=== PATIENT | female | born 1955 | race Caucasian/White ===

== ENCOUNTER 2019-09-11 10:39 | Emergency (ER) | payer BC ==
[2019-09-11 11:10] VITALS: BP 141/91
--- NOTE | 2019-09-11 11:21 | UC ---
Minor Trauma HPI - HPI Summary HPI Summary: 63-year-old female who was hit on the right side of her chest 2 days ago from a barn door that swung open as a result of a very windy day. She states although it hurt at the time she didn't start feeling short of breath or increased pain until yesterday when she was at work. - History of Current Complaint Chief Complaint: UCGeneralIllness Stated Complaint: HIT W/ BARN DOOR RIGHT CHEST/RIBS/BACK PAIN SOB Time Seen by Provider: 09/11/19 10:45 Hx Obtained From: Patient ?: No Onset/Duration: Sudden Onset Onset Of Pain: Immediate Severity Initially: Mild Severity Currently: Moderate Pain Intensity: 8 Mechanism Of Injury: Blunt Trauma - I heavy barn door swung out as a result of a window and hit her in the right lateral upper chest. Aggravating Factor(s): Movement Alleviating Factor(s): Rest - Allergies/Home Medications Allergies/Adverse Reactions: Allergies Allergy/AdvReac Type Severity Reaction Status Date / Time No Known Allergies Allergy Verified 09/11/19 10:59 Home Medications: Home Medications Ibuprofen TAB* [Advil TAB*] 600 mg PO Q6H PRN 09/11/19 [History Confirmed ] Potassium Gluconate [Potassium] 300 mg PO DAILY 09/11/19 [History Confirmed 12/26] PMH/Surg Hx/FS Hx/Imm Hx Previously Healthy: Yes - Surgical History Surgical History: Yes Surgery Procedure, Year, and Place: cholycystectomy. ankle fractures - Family History Known Family History: Positive: Non-Contributory - Social History Lives: With Family Alcohol Use: None Substance Use Type: None Smoking Status (MU): Heavy Every Day Tobacco Smoker Type: Cigarettes Household Exposure Type: Cigarettes Review of Systems All Other Systems Reviewed And Are Negative: Yes Respiratory: Positive: Shortness Of Breath - Mild shortness of breath especially with movement. Musculoskeletal: Positive: Other: - Patient complains of pain to the right upper lateral chest wall. Is Patient Immunocompromised?: No Physical Exam Triage Information Reviewed: Yes Appearance: Well-Appearing, No Pain Distress, Well-Nourished Vital Signs: Initial Vital Signs Temp 97.9 F 09/11/19 11:01 Pulse 80 09/11/19 11:01 Resp 20 09/11/19 11:01 BP 141/91 09/11/19 11:01 Pulse Ox 98 09/11/19 11:01 Vital Signs Reviewed: Yes Neck: Positive: Supple, Nontender - C-spine nontender, No Lymphadenopathy Respiratory: Positive: Lungs clear, Normal breath sounds, No respiratory distress, No accessory muscle use Cardiovascular: Positive: RRR, No Murmur, Pulses Normal, Brisk Capillary Refill Abdomen Description: Positive: Nontender, No Organomegaly, Soft. Negative: CVA Tenderness (R), CVA Tenderness (L), Distended, Guarding, Hepatomegaly, Splenomegaly Bowel Sounds: Positive: Present Musculoskeletal: Positive: Strength Intact, ROM Intact, Other: - Mild tenderness on palpation to the chest wall right upper lateral area. No bruising , erythema, deformity or swelling is noted. She has good range of motion of her extremities and good arm strength against resistance. Neurological Exam: Normal Psychological Exam: Normal Skin Exam: Normal Minor Trauma Course/Dx - Course Course Of Treatment: Chest x-ray:FINDINGS: The lungs are clear. There is no pleural effusion or pneumothorax. The cardiomediastinal silhouette is within normal limits. The upper abdominal contents are normal. There are surgical clips in the right upper quadrant. Osseous structures are unremarkable. IMPRESSION: No acute cardiopulmonary process by radiograph. The patient has been comfortable here. She would like two days off work which was given. - Differential Dx/Diagnosis Provider Diagnosis: Contusion, chest wall Discharge ED - Sign-Out/Discharge Documenting (check all that apply): Patient Departure All imaging exams completed and their final reports reviewed: Yes - Discharge Plan Condition: Good Disposition: HOME Patient Education Materials: Contusion in Adults (ED) Forms: *Work Release Referrals: Tracey Gale MD [Primary Care Provider] - Additional Instructions: Apply heat to the sore area as needed. May take Tylenol every 4 hours and ibuprofen every 6-8 hours with food. Definite follow-up with your primary care provider if no improvement in 3 or 4 days. - Billing Disposition and Condition Condition: GOOD Disposition: Home
== END 2019-09-11 11:47 | disposition home or self-care (01) ==
LOC: UCCORT 10:39
DX: S20.211A Contusion of right front wall of thorax, initial encounter (principal); F17.210 Nicotine dependence, cigarettes, uncomplicated; R06.02 Shortness of breath; W20.8XXA Other cause of strike by thrown, projected or falling object, initial encounter; Y92.71 Barn as the place of occurrence of the external cause
CPT/HCPCS: 71046; 99201; G0463

== ENCOUNTER 2019-12-09 11:35 | Emergency (ER) | payer BC ==
[2019-12-09 12:10] VITALS: BP 134/77
--- NOTE | 2019-12-09 12:21 | UC ---
Throat Pain/Nasal Caio HPI - HPI Summary HPI Summary: 64-year-old female presents with one-week history of nasal congestion, sinus pressure, postnasal drip. States over the last 2-3 days symptoms have been progressively getting worse and she has developed an occasional productive cough. States the nasal discharge was initially clear but has become thick and yellow. Denies fever, chills, ear pain, sore throat, chest pain, or shortness of breath. - History of Current Complaint Chief Complaint: UCRespiratory Stated Complaint: SINUS Time Seen by Provider: 12/09/19 12:13 Hx Obtained From: Patient Pain Intensity: 5 - Allergies/Home Medications Allergies/Adverse Reactions: Allergies Allergy/AdvReac Type Severity Reaction Status Date / Time No Known Allergies Allergy Verified 12/09/19 12:05 Home Medications: Home Medications Ibuprofen TAB* [Advil TAB*] 600 mg PO Q6H PRN 09/11/19 [History Confirmed ] Potassium Gluconate [Potassium] 300 mg PO DAILY 09/11/19 [History Confirmed 10/29] Amoxicillin/Clavulanate TAB* [Augmentin TAB 875*] 875 mg PO BID #20 tab [Rx] Dextromethorphan Polistirex [Delsym] 90 mg PO BID PRN 12/09/19 [History Confirmed 12/09/19] Dm/Acetaminophen/Doxylamine [Vicks Nyquil Cold & Flu N] 30 ml PO Q6H PRN [History Confirmed 12/09/19] Fluticasone NASAL SPRAY 50MCG* [Flonase NASAL SPRAY 50MCG*] 2 spray BOTH NARES DAILY #1 btl 12/09/19 [Rx] PMH/Surg Hx/FS Hx/Imm Hx Previously Healthy: Yes - Denies significant PMH - Surgical History Surgical History: Yes Surgery Procedure, Year, and Place: cholycystectomy. ankle fractures - Family History Known Family History: Positive: Non-Contributory - Social History Occupation: Employed Full-time Lives: Alone Alcohol Use: None Substance Use Type: None Smoking Status (MU): Heavy Every Day Tobacco Smoker Type: Cigarettes Amount Used/How Often: 1 PPD Length of Time of Smoking/Using Tobacco: Since Age "Early 20s" Household Exposure Type: Cigarettes Review of Systems All Other Systems Reviewed And Are Negative: Yes Constitutional: Negative: Fever, Chills Skin: Negative: Rash Eyes: Negative: Drainage, Eye Redness ENT: Positive: Nasal Discharge, Sinus Congestion, Sinus Pain/Tenderness. Negative: Sore Throat, Ear Ache Respiratory: Positive: Cough. Negative: Shortness Of Breath Cardiovascular: Negative: Chest Pain Gastrointestinal: Positive: Negative Genitourinary: Positive: Negative Musculoskeletal: Positive: Negative Neurological/Mental Status: Positive: Negative Is Patient Immunocompromised?: No Physical Exam - Summary Physical Exam Summary: GENERAL APPEARANCE: Well developed, well nourished, alert and cooperative, and appears to be in no acute distress. EYES: Conjunctiva clear. No drainage. EARS: External auditory canals and tympanic membranes clear, hearing grossly intact. NOSE: Moderate nasal congestion. No nasal discharge. Maxillary sinus tenderness. THROAT: Pharyngeal cobblestoning. No tonsilar inflammation, swelling, exudate, or lesions. Uvula midline. NECK: Neck supple, non-tender without lymphadenopathy. CARDIAC: Normal S1 and S2. No S3, S4 or murmurs. Rhythm is regular. There is no peripheral edema, cyanosis or pallor. Extremities are warm and well perfused. Capillary refill is less than 2 seconds. Peripheral pulses intact. LUNGS: Clear to auscultation without rales, rhonchi, wheezing or diminished breath sounds. Nonproductive cough. ABDOMEN: Positive bowel sounds. Soft, nondistended, nontender. No guarding or rebound. No masses or hepatosplenomegally. MUSKULOSKELETAL: ROM intact to all extremities. No joint erythema or tenderness. Normal muscular development. Normal gait. SKIN: Skin normal color, texture and turgor with no lesions or eruptions. Triage Information Reviewed: Yes Vital Signs: Initial Vital Signs Temp 98 F 12/09/19 12:02 Pulse 80 12/09/19 12:02 Resp 18 12/09/19 12:02 BP 134/77 12/09/19 12:02 Pulse Ox 98 12/09/19 12:02 Vital Signs Reviewed: Yes Throat Pain/Nasal Course/Dx - Course Course Of Treatment: 64-year-old female presents with one-week history of nasal congestion, sinus pressure, postnasal drip. States over the last 2-3 days symptoms have been progressively getting worse and she has developed an occasional productive cough. States the nasal discharge was initially clear but has become thick and yellow. Denies fever, chills, ear pain, sore throat, chest pain, or shortness of breath. Afebrile. Mildly hypertensive otherwise vital signs stable. Patient had moderate nasal congestion, maxillary sinus tenderness, normal TMs, pharyngeal cobblestoning without tonsillar swelling or exudate, no cervical lymphadenopathy, clear bilateral breath sounds, nonproductive cough, and otherwise unremarkable exam. Discussed with patient that he stop the duration and worsening of her symptoms we will treat her for an acute sinusitis with Augmentin 875 mg twice a day 10 days as well as symptomatic treatment. She is to follow up with her primary care provider in 5-7 days if symptoms are not improving. Anticipatory guidance warning symptoms were reviewed with the patient. Verbalizes understanding and agrees with plan of care. - Differential Dx/Diagnosis Differential Diagnosis/HQI/PQRI: Influenza, Sinusitis, URI Provider Diagnosis: Acute maxillary sinusitis Discharge ED - Sign-Out/Discharge Documenting (check all that apply): Patient Departure All imaging exams completed and their final reports reviewed: No Studies - Discharge Plan Condition: Stable Disposition: HOME Prescriptions: Amoxicillin/Clavulanate TAB* [Augmentin TAB 875*] 875 mg PO BID #20 tab Fluticasone NASAL SPRAY 50MCG* [Flonase NASAL SPRAY 50MCG*] 2 spray BOTH NARES DAILY #1 btl Patient Education Materials: Sinusitis (ED) Referrals: Tracey Gale MD [Primary Care Provider] - 5 Days Additional Instructions: Your history and exam are consistent with a sinus infection. Considering the duration and worsening of symptoms we will treat you with an antibiotic to treat the infection. Start Augmentin 875 mg 1 tablet twice daily for 10 days. Take with food to avoid upset stomach. Be sure to complete the entire course even if feeling better. Drink plenty of fluids to avoid dehydration especially if you are running any fever. Use a saline rinse kit such as Neti Pot or NeilMed at least twice a day to help thin secretions and promote drainage of the sinuses. Use fluticasone (Flonase) nasal spray 2 sprays each nostril once daily. Take over the counter acetaminophen (Tylenol) or ibuprofen (Advil, Motrin) according to directions as needed for pain or fever. Follow up with your primary care provider in 5-7 days if symptoms persist. Seek immediate medical attention in the emergency room if you have fever greater than 100.5 F despite taking acetaminophen or ibuprofen, have chest pain , difficulty breathing, are unable to swallow, or have any worsening of symptoms. - Billing Disposition and Condition Condition: STABLE Disposition: Home
== END 2019-12-09 12:41 | disposition home or self-care (01) ==
LOC: UCCORT 11:35
DX: J01.00 Acute maxillary sinusitis, unspecified (principal); F17.210 Nicotine dependence, cigarettes, uncomplicated
CPT/HCPCS: 99212; G0463